=== PATIENT | female | born 1995 | race Caucasian/White ===

== ENCOUNTER 2018-02-23 19:53 | Emergency (ER) | payer BC, OTHER ==
[2018-02-23] MEDS ORDERED: DIAZEPAM 5MG/ML SOL IV ONE (20:31)
[2018-02-23] MEDS ORDERED: HYDROMORPHONE 1 MG/ML SYRINGE IV ONE (20:32)
[2018-02-23] MEDS ORDERED: HYDROMORPHONE 1 MG/ML SYRINGE ONE (20:32)
[2018-02-23] MEDS ORDERED: MIDAZOLAM 2 MG/2 ML SOL IV ONE (20:41)
[2018-02-23] MEDS ORDERED: MIDAZOLAM 2 MG/2 ML SOL ONE (20:42)
[2018-02-23] MEDS ORDERED: SODIUM CHLORIDE 0.9% FLUSH 10 ML SOL IV PRN (20:43)
[2018-02-23] MEDS ORDERED: FLUMAZENIL 1 MG/10 ML SOL IV ONE ×2 (20:52→20:53)
[2018-02-23 22:03] VITALS: BP 101/70; PULSE 51; RESP 14; TEMP 95.1; O2SAT 100
== END 2018-02-23 21:45 | disposition home or self-care (01) | DRG 159 ==
LOC: ED 19:53
DX: S03.00XA Dislocation of jaw, unspecified side, initial encounter (principal)
CPT/HCPCS: 21480; 70110; 94762; 96374; 96375; 99282; 99285; J2250; J1170; J3490